=== PATIENT | female | born 1970 | race Caucasian/White ===

== ENCOUNTER 2017-05-13 12:23 | Emergency (ER) | payer MEDICAID ==
[2017-05-13] MEDS ORDERED: HALOPERIDOL LACTATE 5 MG/ML VIAL ONE (13:26)
[2017-05-13] MEDS ORDERED: LORazepam 2 MG/ML DISP.SYRIN ONE (13:27)
[2017-05-13] MEDS: LITHIUM CARBONATE 150 MG CAPSULE PO ONE (13:34)
[2017-05-13] MEDS: LORazepam 2 MG/ML DISP.SYRIN IM ONE (13:34)
[2017-05-13] MEDS: HALOPERIDOL LACTATE 5 MG/ML VIAL IM ONE (13:34)
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
[2017-05-14 08:36] VITALS: BP 136/98
== END 2017-05-13 21:03 | disposition home or self-care (01) ==
LOC: ER 12:23
DX: F41.9 Anxiety disorder, unspecified (principal); F32.9 Major depressive disorder, single episode, unspecified; F15.10 Other stimulant abuse, uncomplicated; F22 Delusional disorders